=== PATIENT | female | born 1950 | race Caucasian/White ===

== ENCOUNTER 2024-03-09 09:39 | Outpatient (RCR) | payer MEDICARE, BC, SELFPAY | END 2024-09-05 23:59 | disposition home or self-care (01) | LOC: CCIC 09:39 | PROVIDERS: PCP Internal Medicine; Visit Provider Clinical Nurse Specialist | DX: C25.9 Malignant neoplasm of pancreas, unspecified (principal) | CPT/HCPCS: 99211 ==